=== PATIENT | female | born 1960 | race Caucasian/White ===

== ENCOUNTER 2024-03-14 08:29 | Day surgery (SDC) | payer MEDICAID ==
[~2024-03-14 08:29] MED LIST: Sodium Chloride 0.9% 10 ML Syringe FLUSH PRN
[2024-03-14] MEDS ORDERED: Lidocaine 2% 100 MG/5 ML Syringe IVPUSH ONE (08:30)
[2024-03-14] MEDS ORDERED: Propofol 200 MG/20 ML SDV IV ONE (08:30)
[2024-03-14] MEDS ORDERED: Midazolam 1 MG/ML 2 ML SDV IV ONE (08:30)
[2024-03-14] MEDS ORDERED: Ketamine 500 mg/10 ML MDV IV ONE (08:30)
[2024-03-14] MEDS: Lactated Ringers 1,000 ML IV SCH (09:45)
[2024-03-14] MEDS: Simethicone Drops 40 MG/0.6 ML 30 ML Bottle ONE (10:36)
== END 2024-03-14 11:47 | disposition home or self-care (01) ==
LOC: FB.SDS 08:29
PROVIDERS: ATTEND Surgery
DX: R13.10 Dysphagia, unspecified (principal); R11.10 Vomiting, unspecified; E66.01 Morbid (severe) obesity due to excess calories; Z68.41 Body mass index [BMI] 40.0-44.9, adult
CPT/HCPCS: 00731; A9270-GY; J2250; J2704; J3490; J7120